=== PATIENT | female | born 1955 | race Caucasian/White ===

== ENCOUNTER → 2016-05-15 | Outpatient (CLI) | payer BC ==
[2016-05-15 13:30] LABS: ALT 47 U/L (9-52); AST 28 U/L (14-36); Alkaline Phosphatase 123 U/L (38-126); Anion Gap 12 mmol/L; Blood Urea Nitrogen 19 mg/dL (7-17); Calcium 9.5 mg/dL (8.4-10.2); Carbon Dioxide 29 mmol/L (22-30); Chloride 101 mmol/L (98-107); Cholesterol 148 mg/dL (<200); Glucose 98 mg/dL (74-99); HDL Cholesterol 50 mg/dL (40-60); Non-African American GFR(MDRD) >60 (>60 ml/min/1.73 sqM); Sodium 142 mmol/L (137-145); Total Bilirubin 0.5 mg/dL (0.2-1.3); Total Protein 7.5 g/dL (6.3-8.2); Triglycerides 230 mg/dL (<150)
[2016-05-15 13:41] LABS: CH 30.3; HCT 43.2 % (34.0-46.0); HDW 2.35; HGB 14.6 gm/dL (11.4-16.0); MCH 30.2 pg (25.0-35.0); MCHC 33.7 g/dL (31.0-37.0); MCV 89.6 fL (80.0-100.0); Mean Platelet Volume 7.7; RBC 4.82 m/uL (3.80-5.40); RDW 12.5 % (11.5-15.5); WBC 7.4 k/uL (3.8-10.6)
== END | disposition home or self-care (01) ==
LOC: LABWHC1 12:47
PROVIDERS: ATTEND Psychiatry & Neurology Psychiatry
DX: E78.5 Hyperlipidemia, unspecified (principal); E03.9 Hypothyroidism, unspecified
CPT/HCPCS: 36415; 80053; 80061; 84439; 84443; 85027

== ENCOUNTER → 2016-11-18 | Outpatient (CLI) | payer BC ==
[2016-11-18 14:24] LABS: Basophils % (A) 1 %; CH 30.9; CHCM 34.9; Eosinophils # (A) 0.1 k/uL (0-0.7); Eosinophils % (A) 2 %; HCT 43.1 % (34.0-46.0); HDW 2.29; HGB 14.9 gm/dL (11.4-16.0); Luc # (Auto) 0.14; Luc % (Auto) 2; Lymphocytes # (A) 2.6 k/uL (1.0-4.8); Lymphocytes % (A) 38 %; MCH 30.7 pg (25.0-35.0); MCHC 34.6 g/dL (31.0-37.0); MCV 88.8 fL (80.0-100.0); Mean Platelet Volume 8.5; Monocytes # (A) 0.3 k/uL (0-1.0); Monocytes % (A) 5 %; Neutrophils # (A) 3.6 k/uL (1.3-7.7); Neutrophils % (A) 53 %; RBC 4.85 m/uL (3.80-5.40); RDW 13.4 % (11.5-15.5); WBC 6.9 k/uL (3.8-10.6)
[2016-11-18 14:30] LABS: Appearance,Urine Clear (Clear); Bacteria,Urine Rare /hpf; Bilirubin,Urine Negative (Negative); Glucose,Urine (UA) Negative (Negative); Ketones,Urine Negative (Negative); Leukocyte Esterase,Urine Trace (Negative); Nitrite,Urine Positive (Negative); PH, Urine 6.5 (5.0-8.0); Particle Count 8389; Protein,Urine Negative (Negative); RBC,Urine 1 /hpf (0-5); Specific Gravity,Urine 1.017 (1.001-1.035); Squamous Epithelial Cell,Urine 1 /hpf (0-4); UA Billing (MACRO vs. MICRO) MICRO; Urobilinogen,Urine <2.0 mg/dL (<2.0); WBC,Urine 3 /hpf (0-5)
[2016-11-18 14:34] LABS: ALT 40 U/L (9-52); AST 23 U/L (14-36); Alkaline Phosphatase 111 U/L (38-126); Anion Gap 8 mmol/L; Blood Urea Nitrogen 16 mg/dL (7-17); Calcium 9.5 mg/dL (8.4-10.2); Carbon Dioxide 28 mmol/L (22-30); Chloride 104 mmol/L (98-107); Cholesterol 154 mg/dL (<200); Creatine Kinase 72 U/L (30-135); Glucose 91 mg/dL (74-99); HDL Cholesterol 41 mg/dL (40-60); Non-African American GFR(MDRD) >60 (>60 ml/min/1.73 sqM); Potassium 4.4 mmol/L (3.5-5.1); Sodium 140 mmol/L (137-145); Total Bilirubin 0.6 mg/dL (0.2-1.3); Total Protein 7.1 g/dL (6.3-8.2); Triglycerides 252 mg/dL (<150); Uric Acid 3.7 mg/dL (3.7-7.4)
[2016-11-18 18:24] LABS: Hemoglobin A1C 6.3 % (4.2-6.1)
== END | disposition home or self-care (01) ==
LOC: LABWHC1 13:55
PROVIDERS: ATTEND Psychiatry & Neurology Psychiatry
DX: Z00.00 Encounter for general adult medical examination without abnormal findings (principal); E55.9 Vitamin D deficiency, unspecified; E78.5 Hyperlipidemia, unspecified; E03.9 Hypothyroidism, unspecified; M81.0 Age-related osteoporosis without current pathological fracture; R73.09 Other abnormal glucose; Z79.899 Other long term (current) drug therapy
CPT/HCPCS: 36415; 80053; 80061; 81001; 82306; 82550; 83036; 84439; 84443; 84550; 85025

== ENCOUNTER → 2016-12-10 | Outpatient (CLI) | payer BC ==
--- NOTE | 2016-12-11 16:25 | BD ---
EXAMINATION TYPE: MG DEXA axial skeleton. DATE OF EXAM: 12/10/2016 COMPARISON: NONE CLINICAL HISTORY: [id number] female with osteoporosis Height: 5 FT 4 IN Weight: 205 FRAX RISK QUESTIONS: Alcohol (3 or more units per day): NO Family History (Parent hip fracture): NO Glucocorticoids (More than 3mos): NO (Ex: prednisone, prednisolone, methylprednisolone, dexamethasone, and hydrocortisone). History of Fracture in Adulthood: NO Secondary Osteoporosis: 1. Type 1 Diabetes: NO 2. Hyperthyroidism: NO 3. Menopause before 45: NO 4. Malnutrition: NO 5. Chronic liver disease: NO Rheumatoid Arthritis: NO Current Tobacco Use: NO RISK FACTORS HISTORY OF: Family History of Osteoporosis: YES Active: YES Postmenopausal woman: AGE 58 MEDICATIONS: Thyroid Medications: YES Which medication: LEVOTHYROXINE How Lon YEARS Additional Medications: SEROQUEL, FLUVOXOMICINE, LEVOTHYROXINE Additional History: EXAM MEASUREMENTS: Bone mineral densitometry was performed using the [employer]. Bone mineral density as measured about the Lumbar spine is: ----- L1-L4(G/cm2): 1.488 T Score Values are as follows: ----- L2: 1.7 ----- L3: 3.2 ----- L4: 4.1 ----- L1-L4: 2.6 Bone mineral density has: Increased 0.3% since study of: 2011 Bone mineral density about the R hip (g/cm2): 0.941 Bone mineral density about the L hip (g/cm2): 1.032 T Score values are as follows: -----R Neck: -0.7 -----L Neck: 0.0 -----R Total: 0.0 -----L Total: 1.3 Bone mineral density has: Increased 4.4% since study of: 2011 IMPRESSION: Normal (Values between +1 and -1 indicate normal bone mass). Consider repeating this study in 5 year s or sooner if there is some new clinical indication. NOTE: T-SCORE=SD OF THE YOUNG ADULT MEAN.
--- NOTE | 2016-12-12 08:21 | MM ---
Reason for exam: screening (asymptomatic). Last mammogram was performed 1 year and 1 month ago. History: Patient is postmenopausal. Family history of breast cancer in mother at age 63, breast cancer in sister at age 39, breast cancer in maternal cousin, and breast cancer in paternal cousin. Physical Findings: A clinical breast exam by your physician is recommended on an annual basis and results should be correlated with mammographic findings. MG 3D Screening Mammo W/Cad Bilateral CC and MLO view(s) were taken. Prior study comparison: November 02, 2015, mammogram. December 23, 2013, mammogram. The breast tissue is almost entirely fat. There is chronic nodularity in the right breast. No significant changes when compared with prior studies. ASSESSMENT: Negative, BI-RAD 1 RECOMMENDATION: Routine screening mammogram of both breasts in 1 year.
== END | disposition home or self-care (01) ==
LOC: RADMAMWWP 15:23
PROVIDERS: ATTEND Internal Medicine
DX: Z12.31 Encounter for screening mammogram for malignant neoplasm of breast (principal); M81.0 Age-related osteoporosis without current pathological fracture
CPT/HCPCS: 77080; 77063; G0202

== ENCOUNTER → 2018-12-23 | Outpatient (CLI) | payer BC ==
[2018-12-23 14:20] LABS: HCT 43.1 % (34.0-46.0); HGB 14.5 gm/dL (11.4-16.0); MCH 30.5 pg (25.0-35.0); MCHC 33.6 g/dL (31.0-37.0); MCV 90.9 fL (80.0-100.0); Mean Platelet Volume 7.9; Platelet Count 232 k/uL (150-450); RBC 4.74 m/uL (3.80-5.40); WBC 8.4 k/uL (3.8-10.6)
[2018-12-23 18:38] LABS: Chol/HDL Ratio 3.53; LDL Cholesterol,Calculated 66.6 mg/dL (0.0-131.0); VLDL Calculation 42.4 mg/dL (5.00-40.00)
[2018-12-23 20:14] LABS: Hemoglobin A1C 6.3 % (4.0-6.0)
== END | disposition home or self-care (01) ==
LOC: LABWHC1 13:22
PROVIDERS: ATTEND Psychiatry & Neurology Psychiatry
DX: E78.5 Hyperlipidemia, unspecified (principal); E03.9 Hypothyroidism, unspecified; E66.9 Obesity, unspecified
CPT/HCPCS: 36415; 80061; 83036; 84443; 84460; 85027

== ENCOUNTER → 2019-04-29 | Outpatient (CLI) | payer BC ==
[2019-04-29 12:35] LABS: HCT 43.5 % (34.0-46.0); HGB 14.6 gm/dL (11.4-16.0); MCH 30.3 pg (25.0-35.0); MCHC 33.5 g/dL (31.0-37.0); MCV 90.5 fL (80.0-100.0); Mean Platelet Volume 8.4; Platelet Count 239 k/uL (150-450); RBC 4.81 m/uL (3.80-5.40); RDW 12.4 % (11.5-15.5); WBC 7.5 k/uL (3.8-10.6)
[2019-04-29 18:33] LABS: Chol/HDL Ratio 3.73; LDL Cholesterol,Calculated 70.8 mg/dL (0.0-131.0); VLDL Calculation 41.2 mg/dL (5.00-40.00)
[2019-04-29 19:40] LABS: Hemoglobin A1C 6.2 % (4.0-6.0)
== END | disposition home or self-care (01) ==
LOC: LABWHC1 11:52
PROVIDERS: ATTEND Psychiatry & Neurology Psychiatry
DX: E78.5 Hyperlipidemia, unspecified (principal); R73.9 Hyperglycemia, unspecified
CPT/HCPCS: 36415; 80061; 83036; 84460; 85027

== ENCOUNTER → 2019-11-10 | Outpatient (CLI) | payer SELFPAY ==
[2019-11-10 14:30] LABS: HCT 44.6 % (34.0-46.0); HGB 14.4 gm/dL (11.4-16.0); MCH 29.7 pg (25.0-35.0); MCHC 32.3 g/dL (31.0-37.0); MCV 91.8 fL (80.0-100.0); Mean Platelet Volume 8.2; Platelet Count 230 k/uL (150-450); RBC 4.86 m/uL (3.80-5.40); RDW 12.4 % (11.5-15.5); WBC 7.8 k/uL (3.8-10.6)
[2019-11-10 23:14] LABS: African American GFR (CKD) 69.4 (60.0-200.0); Albumin 4.2 g/dL (3.80-4.90); Albumin/Globulin Ratio 1.83 (1.60-3.17); Anion Gap 8.2 mmol/L (4.00-12.00); Calcium 9.3 mg/dL (8.7-10.3); Carbon Dioxide 27.8 mmol/L (21.6-31.8); Chol/HDL Ratio 4.26; Globulin 2.3 g/dL (1.6-3.3); LDL Cholesterol,Calculated 90.4 mg/dL (0.0-131.0); Non-African American GFR(CKD) 59.9 (60.0-200.0); Potassium 4.3 mmol/L (3.5-5.5); Total Bilirubin 0.5 mg/dL (0.2-1.2); Total Protein 6.5 g/dL (6.2-8.2); VLDL Calculation 46.6 mg/dL (5.00-40.00)
[2019-11-10 23:23] LABS: T4, Free (Free Thyroxine) 1.2 ng/dL (0.80-1.80)
[2019-11-11 00:52] LABS: Hemoglobin A1C 6.3 % (4.0-6.0)
== END | disposition home or self-care (01) ==
LOC: LABWHC1 13:43
PROVIDERS: ATTEND Psychiatry & Neurology Psychiatry
DX: E78.5 Hyperlipidemia, unspecified (principal); E03.9 Hypothyroidism, unspecified; Z79.899 Other long term (current) drug therapy
CPT/HCPCS: 36415; 80053; 80061; 83036; 84439; 84443; 85027

== ENCOUNTER → 2020-04-07 | Outpatient (CLI) | payer BC ==
--- NOTE | 2020-04-10 13:45 | MM ---
Reason for exam: screening (asymptomatic). Last mammogram was performed 3 years and 4 months ago. History: Patient is postmenopausal. Family history of breast cancer in mother at age 63, breast cancer in sister at age 39, breast cancer in maternal cousin, and breast cancer in paternal cousin. Physical Findings: A clinical breast exam by your physician is recommended on an annual basis and results should be correlated with mammographic findings. MG 3D Screening Mammo W/Cad Bilateral CC and MLO view(s) were taken. Prior study comparison: December 10, 2016, bilateral MG 3d screening mammo w/cad. November 02, 2015, mammogram. There are scattered fibroglandular densities. There is chronic nodularity bilaterally, larger in right anterior breast. There is no new dominant lesion. Asymmetric breast tissue left stable upper outer quadrant. ASSESSMENT: Benign, BI-RAD 2 RECOMMENDATION: Routine screening mammogram of both breasts in 1 year.
== END | disposition home or self-care (01) ==
LOC: RADMAMWWP 09:04
PROVIDERS: ATTEND Internal Medicine
DX: Z12.31 Encounter for screening mammogram for malignant neoplasm of breast (principal); Z80.3 Family history of malignant neoplasm of breast
CPT/HCPCS: 77063; 77067

== ENCOUNTER → 2020-10-03 | Outpatient (CLI) | payer BC ==
--- NOTE | 2020-10-03 09:57 | XR ---
EXAMINATION TYPE: XR shoulder complete RT DATE OF EXAM: 10/03/2020 COMPARISON: NONE HISTORY: Pain TECHNIQUE: Shoulder examined in 3 views FINDINGS: The humeral head articulates with the glenoid. The acromio-clavicular junction is normal. No acute fractures or dislocations are evident. A follow up study can be performed 7-10 days from acute trauma for continued pain. IMPRESSION: 1. Normal three-view right Shoulder
== END | disposition home or self-care (01) ==
LOC: RADXRMAIN 09:32
PROVIDERS: ATTEND Psychiatry & Neurology Psychiatry
DX: M25.511 Pain in right shoulder (principal)

== ENCOUNTER → 2020-12-21 | Outpatient (CLI) | payer BC ==
[2020-12-21 19:13] LABS: HCT 45.5 % (37.2-46.3); HGB 14.9 g/dL (12.0-15.0); MCH 29.9 pg (27.0-32.0); MCHC 32.7 g/dL (32.0-37.0); MCV 91.2 fL (80.0-97.0); Mean Platelet Volume 11.3 fL (9.5-12.2); Platelet Count 235 X 10*3/uL (140-440); RBC 4.99 X 10*6/uL (4.10-5.20); WBC 7.17 X 10*3/uL (4.50-10.00)
[2020-12-21 20:18] LABS: African American GFR (CKD) 90.3 (60.0-200.0); Albumin 4.5 g/dL (3.80-4.90); Albumin/Globulin Ratio 1.8 (1.60-3.17); Anion Gap 6.8 mmol/L (4.00-12.00); Calcium 9.2 mg/dL (8.7-10.3); Carbon Dioxide 28.2 mmol/L (21.6-31.8); Chol/HDL Ratio 3.63; Globulin 2.5 g/dL (1.6-3.3); LDL Cholesterol,Calculated 99.2 mg/dL (0.0-131.0); Non-African American GFR(CKD) 77.9 (60.0-200.0); Potassium 4.3 mmol/L (3.5-5.5); Total Bilirubin 0.6 mg/dL (0.2-1.2); VLDL Calculation 29.8 mg/dL (5.00-40.00)
[2020-12-21 20:26] LABS: T4, Free (Free Thyroxine) 1.5 ng/dL (0.80-1.80)
[2020-12-21 21:37] LABS: Hemoglobin A1C 5.8 % (4.0-6.0)
== END | disposition home or self-care (01) ==
LOC: LABWHC1 13:31
PROVIDERS: ATTEND Psychiatry & Neurology Psychiatry
DX: E11.9 Type 2 diabetes mellitus without complications (principal); E78.5 Hyperlipidemia, unspecified
CPT/HCPCS: 36415; 80053; 80061; 83036; 84439; 84443; 85027

== ENCOUNTER → 2021-04-16 | Outpatient (CLI) | payer BC ==
--- NOTE | 2021-04-16 10:49 | MM ---
Reason for exam: screening (asymptomatic). Last mammogram was performed 1 year ago. History: Patient is postmenopausal and is nulliparous. Family history of breast cancer in mother at age 63, breast cancer in sister at age 39, breast cancer in maternal cousin, and breast cancer in paternal cousin. Physical Findings: A clinical breast exam by your physician is recommended on an annual basis and results should be correlated with mammographic findings. MG 3D Screening Mammo W/Cad Bilateral CC and MLO view(s) were taken. Prior study comparison: April 07, 2020, bilateral MG 3d screening mammo w/cad. December 10, 2016, bilateral MG 3d screening mammo w/cad. There are scattered fibroglandular densities. There is chronic nodularity bilaterally. There is no discrete abnormality. ASSESSMENT: Benign, BI-RAD 2 RECOMMENDATION: Routine screening mammogram of both breasts in 1 year.
--- NOTE | 2021-04-16 10:55 | BD ---
EXAMINATION TYPE: Axial Bone Density DATE OF EXAM: 04/16/2021 COMPARISON: 12.10.2016 CLINICAL HISTORY: 65 YR OLD FEMALE......ICD-10 CODE: Z13.820 OSTEOPOROSIS SCREENING Height: 63 Weight: 203 FRAX RISK QUESTIONS: Family History (Parent hip fracture): NO FX RISK FACTORS HISTORY OF: Family History of Osteoporosis: YES, MOTHER WITHOUT FX Postmenopausal woman: YES, AT ABOUT 59 YRS OLD Take estrogen and/or progesterone medications: HORMONES FOR SHORT WHILE IN HER 30s Lost more than 2 inches in height since high school: YES Hyperparathyroidism: NO Adrenal Insufficiency: NO MEDICATIONS: Thyroid Medications: YES, SYNTHROID FOR ABOUT 40 YRS Additional Medications: BP MEDS IN PAST, STOPPED OVER YR AGO, FLUVOXAMINE, TRAZODS, STATIN FOR ILDA STEROL, VIT D Additional History: HYPERTENSION IN PAST, ANXIETY, DEPRESSION, CHOLESTEROL EXAM MEASUREMENTS: Bone mineral densitometry was performed using the [employer]. Bone mineral density as measured about the Lumbar spine is: ----- L1-L4(G/cm2): 1.289 T Score Values are as follows: ----- L1: -0.2 ----- L2: -1.0 ----- L3: 1.0 ----- L4: 3.7 ----- L1-L4: 0.9 Bone mineral density has: Decreased -13.1% since study of: 12.10.2016 Bone mineral density about the R hip (g/cm2): 0.977 Bone mineral density about the L hip (g/cm2): 1.145 T Score values are as follows: -----R Neck: -0.5 -----L Neck: -0.1 -----R Total: -0.2 -----L Total: 1.1 Bone mineral density has: Decreased -3.0% since study of: 12.10.2016 FRAX%S: THERE IS A 6.6% CHANCE FOR A MAJOR OSTEOPOROTIC FX AND A 0.3% FOR HIPS.......PROBABILITY F OR FX IN 10 YRS TIME IMPRESSION: Normal (Values between +1 and -1 indicate normal bone mass). Consider repeating this study in 5 year s or sooner if there is some new clinical indication. NOTE: T-SCORE=SD OF THE YOUNG ADULT MEAN.
== END | disposition home or self-care (01) ==
LOC: RADMAMWWP 09:08
PROVIDERS: ATTEND Internal Medicine
DX: Z12.31 Encounter for screening mammogram for malignant neoplasm of breast (principal); Z78.0 Asymptomatic menopausal state; Z80.3 Family history of malignant neoplasm of breast
CPT/HCPCS: 77063; 77067; 77080

== ENCOUNTER 2022-03-13 12:02 | Day surgery (SDC) | payer MEDICARE ==
[~2022-03-13 12:02] MED LIST: DEXAMETHASONE SOD PHOSPHATE 4 MG/ML 1 ML VIAL IV ONE; HYDROmorphone 0.5 MG/0.5 ML SYRINGE IVP PRN; LACTATED RINGERS 1,000 ML IV SCH; LIDOCAINE 1% (10MG/ML) FOR IV START INTRADERMA PRN; MIDAZOLAM 2 MG/2 ML VIAL IV PRN; ONDANSETRON 4 MG/2 ML VIAL IVP ONE; Pre Op ABX Message 1 EACH MISC MISCELLANE ONE
[2022-03-13 12:36] VITALS: TEMP 96.9
[2022-03-13 12:41] LABS: Glucose,Whole Blood 101 mg/dL (70-110)
[2022-03-13] MEDS ORDERED: fentaNYL (PF) 50 MCG/ML 2 ML AMP ONE (13:00)
[2022-03-13] MEDS ORDERED: KETAMINE 10 MG/ML 20 ML VIAL ONE (13:00)
[2022-03-13] MEDS ORDERED: PROPOFOL 10 MG/ML 20 ML VIAL IV ONE (13:00)
[2022-03-13] MEDS ORDERED: MIDAZOLAM 2 MG/2 ML VIAL ONE (13:00)
[2022-03-13] MEDS ORDERED: BUPIVACAINE (PF) 0.25% 30 ML VIAL SQ ONE (13:05)
[2022-03-13] MEDS ORDERED: ceFAZolin 1,000 MG VIAL IVPB ONE (13:05)
[2022-03-13 13:57] VITALS: RESP 16
[2022-03-13 14:12] VITALS: BP 160/82; PULSE 48
--- NOTE | 2022-03-19 15:41 | P.OP ---
Date of Procedure: 03/13/22 Preoperative Diagnosis: Hypertrophied bone lateral side of the interphalangeal joint left hallux and on the medial side of the proximal interphalangeal joint second digit left foot Postoperative Diagnosis: Same Procedure(s) Performed: Partial phalangectomy lateral side of interphalangeal joint left hallux and on the medial side of the proximal interphalangeal joint second toe left foot Anesthesia: [facility] Surgeon: Oscar Martniez Indications for Procedure: Painful hyperkeratotic lesions side of left hallux and medial side of second digit left foot Description of Procedure: On the date of surgery the patient was taken to the operating room in good condition placed on the operating table in supine position where an IV was started and adequate IV anesthetic agents were utilized anesthesia was then further supplemented with approximately cc of 0.25% plain Marcaine given in digital blocks to the hallux and second digit of the patient's left foot. The patient's left foot and ankle were then prepped and draped in the usual aseptic manner and over heavy web roll padding an ankle tourniquet had been placed above the malleoli of the patient's left ankle. The patient's left foot and ankle were then elevated and exsanguinated of blood and after approximately 1 minutes. A time the ankle tourniquet to the patient's left ankle was inflated to approximately 250 mmHg At this time attention was directed to the dorsal aspect of the patient's hallux where the level of the interphalangeal joint an approximately half centimeter linear incision was made the incision was deepened via sharp dissection down through the level of the subcutaneous tissue layers all neurovascular structures encountered were identified isolated and were retracted a bleeding vessels were clamped and electrocauterized. Dissection was then carried deep down to level PERIOSTEAL STRUCTURES OVERLYING THE DORSAL LATERAL SIDE OF THE INTERPHALANGEAL JOINT OF THE HALLUX THESE WERE UNDERSCORED AND RETRACTED FROM THE UNDERLYING BONE. A rotatry ALEIDA WAS THEN INTRODUCED AND THE HYPERTROPHIED BONE ON THE LATERAL SIDE OF THE INTERPHALANGEAL JOINT WAS CRATERIZED THE SURGICAL PROCEDURE COPIOUS AMOUNTS OF and was used to irrigate the surgical site when adequate bone had been resected some parosteal structures were coaptated and maintained utilizing 3-0 Dexon simple interrupted suture the skin was then closed utilizing 4-0 nylon simple interrupted suture At this time attention was directed to the dorsal medial side of the proximal interphalangeal joint of the second toe the patient's left foot where the exact same procedure described above for the hallux was performed on the medial side of the proximal interphalangeal joint incisions were covered with Adaptic Kerlix fluffs four-inch conformer and 4 inch Coban ankle tourniquet to the patient's left ankle was deflated and adequate hemostatic return was seen in all digits of the patient's left foot patient tolerated the surgery and anesthesia well was taken to the recovery room in good postoperative condition
== END 2022-03-13 15:06 | disposition home or self-care (01) ==
LOC: OR 12:02
PROVIDERS: ATTEND Podiatrist Foot & Ankle Surgery
DX: M89.372 Hypertrophy of bone, left ankle and foot (principal); M89.8X7 Other specified disorders of bone, ankle and foot
CPT/HCPCS: 28160; 28288; J2250; J0690; J3010; J2704

== ENCOUNTER → 2022-07-13 | Outpatient (CLI) | payer MEDICARE ==
[2022-07-13 17:55] LABS: African American GFR (CKD) 86.7 (60.0-200.0); BUN/Creat Ratio 28.92 Ratio (12.00-20.00); Blood Urea Nitrogen 23.8 mg/dL (9.0-27.0); Calcium 9.5 mg/dL (8.7-10.3); Carbon Dioxide 27.6 mmol/L (20.0-27.5); Chloride 102 mmol/L (96-109); Chol/HDL Ratio 2.95 Ratio; Glucose 116 mg/dL (70-110); Non-African American GFR(CKD) 74.8 (60.0-200.0); Potassium 4.3 mmol/L (3.5-5.5); Sodium 140 mmol/L (135-145); VLDL Calculation 17.18 mg/dL (5.00-40.00)
== END | disposition home or self-care (01) ==
LOC: LABWHC1 12:04
PROVIDERS: ATTEND Internal Medicine
DX: E78.5 Hyperlipidemia, unspecified (principal); E03.9 Hypothyroidism, unspecified; R73.03 Prediabetes
CPT/HCPCS: 36415; 80048; 80061; 83036; 84439; 84443

== ENCOUNTER → 2022-07-18 | Outpatient (CLI) | payer MEDICARE ==
[2022-07-18 10:57] LABS: African American GFR (CKD) >90 (>60 ml/min/1.73 sqM); Blood Urea Nitrogen 18 mg/dL (7-17); Non-African American GFR(CKD) 80 (>60 ml/min/1.73 sqM)
--- NOTE | 2022-07-18 11:20 | CT ---
EXAMINATION TYPE: CT chest w con CT DLP: 474.8 mGycm, Automated exposure control for dose reduction was used. DATE OF EXAM: 07/18/2022 11:15 AM COMPARISON: None CLINICAL INDICATION:Female, 66 years old with history of R05.8 OTHER SPECIFIED COUGH; PHH, Cough TECHNIQUE: Multiple axial images were obtained through the chest following the administration of 100 cc of Isovue 300. FINDINGS: LUNGS/ PLEURA: No pleural effusion or pneumothorax. Scattered regions of reticular opacities within t he anterior bilateral upper lobes with left greater than right. No focal consolidation. 5 mm nodule a long the left major fissure favored to represent intrafissural lymph node (series 4, image 27). No jones spicious pulmonary mass. AIRWAY: Patent and unremarkable.. HEART: Size within normal limits. No pericardial effusion. MEDIASTINUM: No gross evidence of adenopathy. VASCULATURE: No aortic aneurysm. MUSCULOSKELETAL: No acute osseous abnormalities SOFT TISSUES/LYMPH NODES: Unremarkable. LOWER NECK: No significant findings. UPPER ABDOMEN: No significant findings. IMPRESSION: Scattered regions of subpleural reticular opacities predominantly within the bilateral upper lobes le ft greater than right. Findings suggest pulmonary fibrotic changes.
== END | disposition home or self-care (01) ==
LOC: RADCTMAIN 10:19
PROVIDERS: ATTEND Internal Medicine
DX: R91.8 Other nonspecific abnormal finding of lung field (principal); R05.8 Other specified cough
CPT/HCPCS: 82565; 84520; 71260; 36415; Q9967

== ENCOUNTER → 2022-10-09 | Outpatient (CLI) | payer MEDICARE ==
--- NOTE | 2022-10-10 15:10 | CT ---
EXAMINATION TYPE: CT chest wo con DATE OF EXAM: 10/09/2022 COMPARISON: 07/18/2022 HISTORY: dyspena, COPD CT DLP: 1244 mGycm, Automated exposure control for dose reduction was used. CONTRAST: None TECHNIQUE: Axial images were obtained at 1 mm thick sections at 10 mm intervals. This will limit po rtions of the examination which may not be visualized within the [id number]. Images were obtained in the prone and supine views. FINDINGS: Portion of the thyroid visualized is normal. Mild paraseptal increased lung markings are within the dependent lungs. Correlate for atelectasis. So me paraseptal emphysematous changes versus pulmonary fibrosis. Some atelectasis is suspected superimp osed on these findings in the prone view. No enlarged mediastinal or hilar adenopathy is evident. The ascending aorta diameter at the level o f the main pulmonary artery is 3.4 cm. The main pulmonary artery diameter at the bifurcation is 3.[address] sections are obtained through the upper abdomen. Abdomen is essentially unremarkable. IMPRESSIONS: 1. Mild paraseptal emphysematous changes. 2. Mild compressive atelectasis in the lung in the prone position.
== END | disposition home or self-care (01) ==
LOC: RADCTMAIN 14:38
PROVIDERS: ATTEND Internal Medicine Critical Care Medicine
DX: J43.9 Emphysema, unspecified (principal); J98.11 Atelectasis; R06.09 Other forms of dyspnea
CPT/HCPCS: 71250

== ENCOUNTER → 2023-10-28 | Outpatient (CLI) | payer MEDICARE ==
--- NOTE | 2023-10-28 11:39 | CT ---
INDICATION: Patient age:Female; 68 years old; Reason for study: J98.4 cystic lung; [facility]. COMPARISON: CT chest 10/09/2022, 07/18/2022 TECHNIQUE: Multiple thin axial images were obtained through the chest at selected intervals. Prone and supine in spiratory along with supine expiratory images were submitted for review. Please note that due to inte rval acquisition images as defined by high-resolution CT protocol the entire lung parenchyma is not e valuated, therefore small nodular densities may not be visualized. Evaluation of vascular structures , viscera and lymphatics is limited due to lack of intravenous contrast administration. One or more C T dose reduction strategies were utilized during this examination. Total DLP 1361 mGycm. FINDINGS: LUNGS: No honeycombing or architectural distortion are identified. Cylindrical bronchiectasis identif ied within the bilateral lower lobes. Scattered regions of peripheral reticular opacities predominant ly within the bilateral upper lobes. This is most pronounced in the lingula and left upper lobe. Inte rlobular septal thickening identified in the periphery. No ground glass opacities identified. No acut e area of infiltrative or consolidative change. No significant emphysematous changes noted. No pulmon zaira nodularity identified. Calcified granuloma is identified within the periphery of the left lower l obe. LARGE AIRWAYS: Central airways are patent. No dynamic airway collapse on expiratory imaging. PLEURA: No pleural effusion or thickening. HEART AND PERICARDIUM: Heart is normal in size. There is no pericardial effusion. MEDIASTINUM AND DEISI: No mediastinal or hilar lymphadenopathy or soft tissue mass. VESSELS: The thoracic aorta is normal in course and caliber. CHEST WALL AND DIAPHRAGM: Normal. LOWER NECK: Normal. UPPER ABDOMEN: Unremarkable. MUSCULOSKELETAL: No acute fracture. IMPRESSION: Overall similar appearance of scattered regions of peripheral reticular opacities. Findings again sug gest pulmonary fibrosis.
== END | disposition home or self-care (01) ==
LOC: RADCTMAIN 10:04
PROVIDERS: ATTEND Internal Medicine Critical Care Medicine
DX: J98.4 Other disorders of lung (principal)
CPT/HCPCS: 71250